=== PATIENT | male | born 1980 | race Caucasian/White ===

== ENCOUNTER 2017-03-05 11:27 | Inpatient (IN) | payer OTHER ==
[~2017-03-05] VITALS: Ht 180.3 cm; Wt 93.4 kg
--- NOTE | 2017-03-05 19:40 | NUR ---
Pre-Admission Pre-admission assessment performed in the intake department of [facility]. Pt is A&O x4 and ambulatory with a steady gait. He denies allergies to food or medications. Pt does not appear intoxicated and answers questions appropriately. Vital signs: B/P 141/83, HR 71, RR 18, O2 sat 97%, T 97.7, pain 0/10. He reports that he has been using Suboxone, xanax sporadically, soma sporadically, and marijuana. Last used Suboxone today, Xanax 1 week ago, and soma 1 week ago. Pt is stable and admission [facility].
[2017-03-05 19:45] VITALS: BP 141/83
[2017-03-05] MEDS ORDERED: ACETAMINOPHEN 325 MG TABLET PO PRN (20:00)
[2017-03-05] MEDS ORDERED: DICYCLOMINE HCL 20 MG TABLET PO PRN (20:00)
[2017-03-05] MEDS ORDERED: BUPRENORPHINE HCL 2 MG TAB.SUBL SL PRN (20:00)
[2017-03-05] MEDS ORDERED: MAG HYDROX/AL HYDROX/SIMETH 30 ML LIQUID UDC PO PRN (20:00)
[2017-03-05] MEDS ORDERED: DIAZEPAM 5 MG TABLET PO PRN (20:00)
[2017-03-05] MEDS ORDERED: LORAZEPAM 2 MG/1 ML VIAL IM PRN (20:00)
[2017-03-05] MEDS ORDERED: MIRALAX 17 GM POWD.PACK PO PRN (20:00)
[2017-03-05] MEDS ORDERED: LOPERAMIDE HCL 2 MG CAPSULE PO PRN ×2 (20:00)
[2017-03-05] MEDS ORDERED: DIAZEPAM 10 MG TABLET PO PRN ×2 (20:00)
[2017-03-05] MEDS ORDERED: ONDANSETRON ODT 4 MG TAB.RAPDIS SL PRN (20:00)
[2017-03-05] MEDS ORDERED: CLONIDINE HCL 0.1 MG TABLET PO PRN (20:00)
[2017-03-05] MEDS ORDERED: ONDANSETRON 4 MG/2 ML VIAL IM PRN (20:00)
[2017-03-05 20:30] LABS: *AMPHETAMINE, URINE NEGATIVE (NEGATIVE); *BARBITURATE, URINE NEGATIVE (NEGATIVE); *CANNABINOID, URINE POSITIVE (NEGATIVE); *COCCAINE, URINE NEGATIVE (NEGATIVE); *OPIATE, URINE NEGATIVE (NEGATIVE); *PHENCYCLIDINE SCREEN,URINE NEGATIVE (NEGATIVE)
[2017-03-05 21:16] LABS: BASOPHILS # (AUTO) 0.1 K/uL (0.0-8.0); BASOPHILS % (AUTO) 0.5 % (0.0-2.0); EOSINOPHILS # (AUTO) 0.2 K/uL (0.0-0.7); EOSINOPHILS % (AUTO) 1.5 % (0.0-7.0); HEMOGLOBIN 14.4 G/DL (14.0-18.0); LYMPHOCYTES # (AUTO) 3.1 K/UL (0.8-4.8); LYMPHOCYTES % (AUTO) 25.9 % (20.5-51.5); MEAN CORPUSCULAR HGB CONC 34 g/dL (32.0-37.0); MONOCYTES % (AUTO) 8.1 % (0.0-11.0); NEUTROPHILS # (AUTO) 7.7 K/UL (1.8-8.9); PLATELET COUNT (AUTO) 369 K/UL (150-450); RED BLOOD CELL COUNT(AUTO) 5.12 MIL/UL (4.7-6.1); WHITE BLOOD COUNT (AUTO) 12.1 K/UL (4.0-11.2)
[2017-03-05 21:27] LABS: ETHANOL < 3 MG/DL (0-0)
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
[2017-03-05 21:31] LABS: ALANINE AMINOTRANSFERASE 22 U/L (16-63); ALKALINE PHOSPHATASE 84 U/L (50-136); ASPARTATE AMINOTRANSFERASE 16 U/L (15-37); BILIRUBIN,TOTAL 0.3 mg/dL (0.2-1.0); CARBON DIOXIDE 33 mmol/L (21-32); CHLORIDE 103 mmol/L (98-107); GLUCOSE 112 mg/dL (74-106); MAGNESIUM 1.8 mg/dL (1.8-2.4); POTASSIUM 3.7 mmol/L (3.5-5.1); TOTAL PROTEIN, SERUM 8.3 g/dL (6.4-8.2); UREA NITROGEN, BLOOD 16 mg/dL (7-18)
[2017-03-05 21:40] VITALS: BP 143/78
[2017-03-05] MEDS: diphenhydrAMINE 50 MG CAPSULE PO PRN (21:45)
[2017-03-05] MEDS: GABAPENTIN 300 MG CAPSULE PO SCH (21:45)
--- NOTE | 2017-03-05 21:46 | NUR ---
PRN Valium and Benadryl Pt is anxious and restless with mild tremors, flushed face, and moist skin. He reports inability to sleep. COWS 3 and CIWA 9. PRN Valium and Benadryl administered.
--- NOTE | 2017-03-05 22:45 | NUR ---
PRN Valium and Benadryl reassessment Pt reports feeling less anxious and restless. He states that he feels like he is getting tired. COWS 1 and CIWA 3. Safety measures in place.
[2017-03-06] VITALS: BP 137/87
[2017-03-06] MEDS ORDERED: BUPR1FIL3 SL (03:49)
[2017-03-06 04:00] VITALS: BP 127/76
--- NOTE | 2017-03-06 04:00 | NUR ---
COWS and CIWA deferred COWS and CIWA ordered Q4HWA. Pt is lying in bed resting with eyes closed. Vital signs obtained. Safety measures in place.
--- NOTE | 2017-03-06 07:00 | NUR ---
start of shift note: received pt from dump motor operator nurse, pt is in stable condition at this time no s/s of pain or discomfort. pt is admitted to [facility] for opiate/benzo/etoh intermittently. pt's last cows is 1 and ciwa 3. will induct taper medications and monitor for A/r to medications.
--- NOTE | 2017-03-06 07:23 | NUR ---
END OF SHIFT Report provided to day shift nurse. Pt is lying in bed resting. He is a 36 yo male admitted to [facility] on 03/05 for suboxone dependence with a h/o using xanax, soma, ETOH, and marijuana. Subutex taper to start today based on COWS score with PRN Valium available. PRN Valium and Benadryl administered before bed. Last COWS 1 and CIWA 3. He drank 480mL and slept for 7 hours.
[2017-03-06] MEDS: GABAPENTIN 300 MG CAPSULE PO SCH ×2 (08:53→20:38)
[2017-03-06] MEDS: MULTIVITAMINS,THERAPEUTIC TABLET PO SCH (08:54)
[2017-03-06] MEDS: BUPRENORPHINE HCL 2 MG TAB.SUBL SL SCH ×4 (08:54→20:38)
[2017-03-06 09:00] VITALS: BP 141/86
[2017-03-06] MEDS ORDERED: TUBERCULIN,PURIF.PROT.DERIV. 5 TU/0.1 ML TEST ID ONE (09:00)
--- NOTE | 2017-03-06 09:12 | NUR ---
PRN ADMINISTRATION:PT'S CIWA 7, PRN 5 MG VALIUM ADMINISTERED, PT VERBALIZED ANXIETY AND RESTLESSNESS. WILL RE-ASSESS EFFECTIVENESS OF MEDICATION
--- NOTE | 2017-03-06 09:30 | NUR ---
PRN RE-ASSESSMENT: PT VERBALIZED MEDICATION IS EFFECTIVE, PT'S ANXIETY LEVEL HAS DECREASED
[2017-03-06 13:00] VITALS: BP 112/86
[2017-03-06] MEDS: DIAZEPAM 10 MG TABLET PO SCH ×2 (15:02→20:38)
[2017-03-06] MEDS: PAROXETINE HCL 20 MG TABLET PO SCH (16:11)
[2017-03-06 17:18] VITALS: BP 126/86
--- NOTE | 2017-03-06 19:09 | NUR ---
end of shift note: pt is in stable condition no s/s of pain or discomfort.pt is admitted to [facility] for opaite/benzo/etoh withdrawal/dependence. pt was placed on a valium taper and tolerated well no a/r noted. pt tolerated subutex taper well. pts last cows 5 and ciwa 5. will endorse pt to night nurse nurse.
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
[2017-03-06 20:00] VITALS: BP 155/97
[2017-03-06] MEDS: METHOCARBAMOL 750 MG TABLET PO PRN (20:39)
[2017-03-06] MEDS: MAGNESIUM HYDROXIDE 30 ML LIQUID UDC PO PRN (20:40)
--- NOTE | 2017-03-06 20:41 | NUR ---
PRN Robaxin, Bentyl, and Milk of Magnesia Pt reports low back ache 7/10, stomach cramps, and no BM since prior to admission. PRN Robaxin, Bentyl, and Milk of Magnesia administered. Fluids encouraged.
--- NOTE | 2017-03-06 21:41 | NUR ---
PRN Anupama Sanches, and Milk of Magnesia reassessment Pt reports low back pain and stomach cramps are relieved. He has not yet has a BM. Educated pt that Milk of Magnesia can take up to 6 hours to work.
[2017-03-07] VITALS: BP 133/77
[2017-03-07] MEDS: diphenhydrAMINE 50 MG CAPSULE PO PRN (00:20)
--- NOTE | 2017-03-07 00:21 | NUR ---
PRN Benadryl Pt c/o inability to sleep. PRN Benadryl administered.
[2017-03-07 04:00] VITALS: BP 131/84
--- NOTE | 2017-03-07 04:00 | NUR ---
0400 COWS and CIWA deferred COWS and CIWA ordered Q4HWA. Pt is lying in bed resting with eyes closed. Vital signs obtained. Respirations even and unlabored. Safety measures in place.
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
[2017-03-07 08:00] VITALS: BP 134/75
[2017-03-07 08:17] LABS: HEPATITIS B SURFACE AG Negative (Negative)
[2017-03-07] MEDS: DIAZEPAM 5 MG TABLET PO SCH ×4 (08:47→21:22)
[2017-03-07] MEDS: BUPRENORPHINE HCL 2 MG TAB.SUBL SL SCH ×3 (08:47→21:22)
[2017-03-07] MEDS: MULTIVITAMINS,THERAPEUTIC TABLET PO SCH (08:47)
[2017-03-07] MEDS: PAROXETINE HCL 20 MG TABLET PO SCH (08:47)
[2017-03-07] MEDS: GABAPENTIN 300 MG CAPSULE PO SCH ×3 (08:47→21:21)
[2017-03-07 12:00] VITALS: BP 142/84
[2017-03-07] MEDS ORDERED: METHYL SALICYLATE/MENTHOL CREAM 28 GM TUBE TOP PRN (13:45)
[2017-03-07 16:00] VITALS: BP 104/45
[2017-03-07] MEDS: BACLOFEN 10 MG TABLET PO SCH ×2 (16:16→21:21)
[2017-03-07] MEDS: METHOCARBAMOL 750 MG TABLET PO PRN (16:21)
--- NOTE | 2017-03-07 16:30 | NUR ---
PRN Medication Administration Pt is in room and c/o muscle tension and discomfort; PRN Robaxin 750mg given as ordered. Will reassess in 1H.
--- NOTE | 2017-03-07 17:30 | NUR ---
Reassessment Pt is in room resting in bed and watching T.V. and denies muscle discomfort; Robaxin is effective. Will cont. to monitor the pt.
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
[2017-03-07 20:00] VITALS: BP 134/66
[2017-03-07] MEDS: CLONIDINE HCL 0.1 MG TABLET PO SCH (21:20)
[2017-03-07] MEDS: MAGNESIUM HYDROXIDE 30 ML LIQUID UDC PO PRN (21:23)
--- NOTE | 2017-03-07 21:24 | NUR ---
PRN Milk of Magnesia Pt reports difficulty having a BM. Encouraged fluids. PRN Milk of Magnesia administered.
[2017-03-08] VITALS: BP 122/74
--- NOTE | 2017-03-08 | NUR ---
0000 COWS and CIWA deferred COWS and CIWA ordered Q4HWA. Pt is lying in bed resting with eyes closed. Vital signs obtained. Safety measures in place.
--- NOTE | 2017-03-08 04:00 | NUR ---
0400 Vitals refused/COWS and CIWA deferred Pt refused to be woken for 0400 Vitals. He is lying in bed resting with eyes closed. Respirations even and unlabored. COWS and CIWA ordered Q4HWA. Safety measures in place.
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
[2017-03-08 08:00] VITALS: BP 118/79
[2017-03-08] MEDS ORDERED: BUPRENORPHINE HCL 2 MG TAB.SUBL SL SCH (09:00)
[2017-03-08] MEDS: PAROXETINE HCL 20 MG TABLET PO SCH (09:21)
[2017-03-08] MEDS: MULTIVITAMINS,THERAPEUTIC TABLET PO SCH (09:22)
[2017-03-08] MEDS: IBUPROFEN 600 MG TABLET PO PRN (09:22)
[2017-03-08] MEDS: DIAZEPAM 5 MG TABLET PO SCH ×3 (09:22→21:42)
[2017-03-08] MEDS: BACLOFEN 10 MG TABLET PO SCH (09:22)
--- NOTE | 2017-03-08 09:22 | NUR ---
PRN MEDICATION ADMINISTRATION Low back pain 11/30. Gave Motrin PRN for pain.
[2017-03-08] MEDS: GABAPENTIN 300 MG CAPSULE PO SCH (09:23)
--- NOTE | 2017-03-08 10:22 | NUR ---
PRN MEDICATION REASSESSMENT Denies low back pain after Motrin PRN medication.
[2017-03-08] MEDS: CLONIDINE HCL 0.1 MG TABLET PO SCH ×3 (10:24→21:41)
[2017-03-08] MEDS: busPIRone 5 MG TABLET PO SCH ×3 (11:00→17:02)
[2017-03-08 12:00] VITALS: BP 147/61
[2017-03-08] MEDS ORDERED: BISACODYL 10 MG SUPP.RECT RC PRN (13:15)
[2017-03-08] MEDS ORDERED: BISACODYL 5 MG TABLET.DR PO PRN (13:15)
[2017-03-08] MEDS ORDERED: KETOROLAC TROMETHAMINE 30 MG INJ IM PRN (13:15)
[2017-03-08] MEDS: GABAPENTIN 400 MG CAPSULE PO SCH ×2 (14:53→21:41)
[2017-03-08] MEDS: BACLOFEN 20 MG TABLET PO SCH ×2 (14:53→21:42)
[2017-03-08] MEDS: DOCUSATE SODIUM 250 MG CAPSULE PO SCH (14:53)
[2017-03-08] MEDS: BUPRENORPHINE HCL 2 MG TAB.SUBL SL SCH ×2 (14:55→21:42)
[2017-03-08] MEDS: LIDOCAINE 5% PATCH TD SCH (14:58)
--- NOTE | 2017-03-08 15:21 | NUR ---
Therapist prompted client about group times. Client stated he would try to attend all groups today.
[2017-03-08 16:00] VITALS: BP 138/76
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
[2017-03-08 20:00] VITALS: BP 127/69
--- NOTE | 2017-03-08 21:00 | NUR ---
PRN Benadryl Pt c/o inability to sleep. PRN Benadryl administered. Safety measures in place : bed on lowest position with side rails x2 up for safety, call light within reach. Will continue to monitor closely and offer help.
[2017-03-08] MEDS: diphenhydrAMINE 50 MG CAPSULE PO PRN (21:41)
--- NOTE | 2017-03-08 22:00 | NUR ---
RE-ASSESSMENT Fabien Pt. is sleeping, RR=16, unlabored and even.Safety measures in place : bed on lowest position with side rails x2 up for safety, call light within reach. Will continue to monitor closely and offer help.
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
[2017-03-09 08:00] VITALS: BP 132/84
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
[2017-03-09] MEDS: LIDOCAINE 5% PATCH TD SCH (09:12)
[2017-03-09] MEDS: BACLOFEN 20 MG TABLET PO SCH ×3 (09:15→21:17)
[2017-03-09] MEDS: CLONIDINE HCL 0.1 MG TABLET PO SCH ×3 (09:15→21:18)
[2017-03-09] MEDS: MULTIVITAMINS,THERAPEUTIC TABLET PO SCH (09:15)
[2017-03-09] MEDS: GABAPENTIN 400 MG CAPSULE PO SCH (09:15)
[2017-03-09] MEDS: busPIRone 5 MG TABLET PO SCH (09:15)
[2017-03-09] MEDS: DIAZEPAM 5 MG TABLET PO SCH ×2 (09:16→21:17)
[2017-03-09] MEDS: DOCUSATE SODIUM 250 MG CAPSULE PO SCH (09:16)
[2017-03-09] MEDS: BUPRENORPHINE HCL 2 MG TAB.SUBL SL SCH ×3 (09:16→21:18)
[2017-03-09] MEDS: PAROXETINE HCL 20 MG TABLET PO SCH (09:16)
[2017-03-09 12:00] VITALS: BP 132/85
[2017-03-09] MEDS ORDERED: busPIRone 5 MG TABLET PO SCH (13:00)
[2017-03-09] MEDS: busPIRone 10 MG TABLET PO SCH ×2 (13:44→17:09)
[2017-03-09] MEDS ORDERED: PNEUMOCOCCAL 23-VAL P-SAC VAC 0.5 ML VIAL IM ONE (15:00)
[2017-03-09] MEDS: GABAPENTIN 300 MG CAPSULE PO SCH ×2 (15:02→21:18)
[2017-03-09 16:00] VITALS: BP 139/88
[2017-03-09] MEDS: METHOCARBAMOL 750 MG TABLET PO PRN (17:08)
[2017-03-09] MEDS: IBUPROFEN 600 MG TABLET PO PRN (17:09)
--- NOTE | 2017-03-09 17:09 | NUR ---
PRN MEDICATION ADMINISTRATION Pt complaint of low back pain, gave Motrin and Robaxin.
--- NOTE | 2017-03-09 18:09 | NUR ---
PRN MEDICATION REASSESSMENT Low back pain 0/10.
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
[2017-03-09 20:00] VITALS: BP 125/71
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
--- NOTE | 2017-03-10 07:35 | NUR ---
START OF SHIFT Pt is a 36 yr old male, AA&Ox4. Pt was admitted on 03/05/17 for Opiate/Benzo dependence and is on Subutex and Valium taper as ordered. Medication candy well. Received report from night guard nurse. Pt slept for 7 hours. last COWS score was 3 and CIWA was 3 at 1999. Pt is observed with increase anxiety this morning m/b difficulty staying still. Pt is c/o muscle aching /. facial grimacing is observed. Encouraged increase fluid intake. Will f/u with eMAR. Skin is intact, warm and dry to touch. No tremors seen or felt. Safety precautions observed. will continue to monitor.
[2017-03-10 08:00] VITALS: BP 135/70
[2017-03-10] MEDS: busPIRone 10 MG TABLET PO SCH ×3 (08:48→17:15)
[2017-03-10] MEDS: GABAPENTIN 300 MG CAPSULE PO SCH (08:48)
[2017-03-10] MEDS: DOCUSATE SODIUM 250 MG CAPSULE PO SCH (08:48)
[2017-03-10] MEDS: CLONIDINE HCL 0.1 MG TABLET PO SCH (08:48)
[2017-03-10] MEDS: PAROXETINE HCL 20 MG TABLET PO SCH (08:48)
[2017-03-10] MEDS: BACLOFEN 20 MG TABLET PO SCH ×3 (08:49→21:42)
[2017-03-10] MEDS: LIDOCAINE 5% PATCH TD SCH (08:49)
[2017-03-10] MEDS: MULTIVITAMINS,THERAPEUTIC TABLET PO SCH (08:49)
--- NOTE | 2017-03-10 08:53 | NUR ---
PRN GIVEN Pt is c/o generalized chronic pain 01/30. Facial grimacing is observed. Toradol 30ml IM PRN was given as ordered. Medication candy well. Encouraged increase fluid intake. Will continue to monitor.
[2017-03-10] MEDS ORDERED: BUPRENORPHINE HCL 2 MG TAB.SUBL SL SCH (09:00)
--- NOTE | 2017-03-10 09:53 | NUR ---
PRN RE-ASSESSMENT Toradol PRN was effective. Pt states pain level 3/10. No facial grimacing is observed. Will continue to monitor.
[2017-03-10] MEDS ORDERED: HYDROXYZINE PAMOATE 25 MG CAPSULE PO PRN (11:00)
[2017-03-10] MEDS ORDERED: CLON0.2T12 PO (11:13)
[2017-03-10] MEDS ORDERED: BACL20TA PO (11:13)
[2017-03-10] MEDS ORDERED: FAMO20TA8 PO (11:13)
[2017-03-10] MEDS ORDERED: BUSP10TA3 PO (11:13)
[2017-03-10] MEDS ORDERED: NAPR500T3 PO (11:13)
[2017-03-10] MEDS ORDERED: DIPH50CA37 PO (11:13)
[2017-03-10] MEDS ORDERED: PARO20TA7 PO (11:13)
[2017-03-10] MEDS ORDERED: LIDO30AD10 TD (11:13)
[2017-03-10] MEDS ORDERED: HYDR-3895 PO (11:13)
[2017-03-10] MEDS ORDERED: GABA-536 PO (11:13)
[2017-03-10 12:00] VITALS: BP 129/77
[2017-03-10] MEDS ORDERED: TRAZODONE 100 MG TABLET PO PRN (12:00)
[2017-03-10] MEDS ORDERED: NAPROXEN 500 MG TABLET PO ONE (13:00)
[2017-03-10] MEDS: FAMOTIDINE 20 MG TABLET PO SCH (13:07)
[2017-03-10] MEDS: GABAPENTIN 400 MG CAPSULE PO SCH ×2 (15:17→21:41)
[2017-03-10] MEDS: CLONIDINE HCL 0.2 MG TABLET PO SCH ×2 (15:18→21:41)
[2017-03-10 16:00] VITALS: BP 122/74
--- NOTE | 2017-03-10 19:15 | NUR ---
START OF SHIFT NOTE : Pt is a 36 yr old male, AA&Ox4. Pt was admitted on 03/05/17 for Opiate/Benzo dependence and has completed Subutex and Valium taper as ordered. Medication tolerated well. Pt has been cooperative with medication regimen and plan of care. Pt is to be discharged tomorrow on 03/11/17. Pt has been observed with anxiety but is able to cope with anxiety level. Last COWS score was 1, CIWA score was 1 at 1600. Encouraged increase fluid intake. Skin is intact, warm and dry to touch. No tremors seen or felt. Safety measures in place : bed on lowest position with side rails x2 up for safety, call light within reach. Will continue to monitor closely and offer help.
--- NOTE | 2017-03-10 19:21 | NUR ---
END OF SHIFT Pt is a 36 yr old male, AA&Ox4. Pt was admitted on 03/05/17 for Opiate/Benzo dependence and has completed Subutex and Valium taper as ordered. Medication candy well. Pt has been cooperative with medication regimen and plan of care. Pt is to be discharged tomorrow on 03/11/17. Pt has been observed with anxiety but is able to cope with anxiety level. Pt c/o left hip and knee pain. Toradol PRN was given in the morning. Medication was effective. Last COWS score was 1, CIWA score was 1 at 1600. Encouraged increase fluid intake. Skin is intact, warm and dry to touch. No tremors seen or felt. Safety precautions observed.
[2017-03-10 20:00] VITALS: BP 112/74
--- NOTE | 2017-03-10 21:00 | NUR ---
PRN Benadryl Pt c/o inability to sleep and mild muscle spasm. PRN Benadryl , Robaxin administered. Safety measures in place : bed on lowest position with side rails x2 up for safety, call light within reach. Will continue to monitor closely and offer help
[2017-03-10] MEDS: NAPROXEN 500 MG TABLET PO SCH (21:42)
[2017-03-10] MEDS: METHOCARBAMOL 750 MG TABLET PO PRN (21:42)
--- NOTE | 2017-03-10 22:00 | NUR ---
RE-ASSESSMENT Verónica Conn Pt. is sleeping, RR=16, unlabored and even. Safety measures in place : bed on lowest position with side rails x2 up for safety, call light within reach. Will continue to monitor closely and offer help.
--- NOTE | 2017-03-11 06:36 | NUR ---
END OF SHIFT NOTE : Pt is a 36 yr old male, AA&Ox4. Pt was admitted on 03/05/17 for Opiate/Benzo dependence and has completed Subutex and Valium taper as ordered. Medication tolerated well. Pt has been cooperative with medication regimen and plan of care. Pt is to be discharged tomorrow on 03/11/17. Pt has been observed with anxiety but is able to cope with anxiety level. Encouraged increase fluid intake. Skin is intact, warm and dry to touch. Pt remains compliant with the treatment plan. No PRNs were given during my shift. V/S remain WNL. RR=16, even and unlabored, lungs clear upon auscultation, abdomen soft and non- distended. Pt denies nausea, vomiting and diarrhea. LAST CIWA=1 ,COWS= 1 at 0400 , [id number] ml, voided x3 , slept 9 hours.Pt. will be D/C today in A.M. Safety measures in place : bed on lowest position with side rails x2 up for safety, call light within reach. Will continue to monitor closely and offer help.
--- NOTE | 2017-03-11 07:15 | NUR ---
Start of Shift Endorsement received from nightshift nurse. Pt is a 36 y/o male admitted for Suboxone, Xanax, win, soma and marijuana dependence. Pt has been placed on a 5 day Subutex and 5 day Valium taper. Pt has completed both tapers and has been scheduled for discharge today. PT is tolerating the detox AEB CIWA 1, COWS 1. Pt reports sleeping 9 hours, feels rested and ready for discharge. Pt received PRN Robaxin and Trazodone. All discharge documentation has been completed, pt has received discharge education. VS WNL. Full Code. PT is alert and oriented x4. Pt is in STABLE condition at this time. Remains compliant with medication and diet regimen. All needs have been met, All safety measures in place per hospital policy. Bed in lowest position, side rails up x2, call-light within reach. Will continue to monitor
[2017-03-11 08:00] VITALS: BP 116/80
[2017-03-11 08:32] VITALS: BP 118/80
[2017-03-11] MEDS: CLONIDINE HCL 0.2 MG TABLET PO SCH (08:32)
[2017-03-11] MEDS: DOCUSATE SODIUM 250 MG CAPSULE PO SCH (08:32)
[2017-03-11] MEDS: NAPROXEN 500 MG TABLET PO SCH (08:32)
[2017-03-11] MEDS: BACLOFEN 20 MG TABLET PO SCH (08:32)
[2017-03-11] MEDS: busPIRone 10 MG TABLET PO SCH (08:33)
[2017-03-11] MEDS: MULTIVITAMINS,THERAPEUTIC TABLET PO SCH (08:33)
[2017-03-11] MEDS: LIDOCAINE 5% PATCH TD SCH (08:33)
[2017-03-11] MEDS: GABAPENTIN 400 MG CAPSULE PO SCH (08:33)
[2017-03-11] MEDS: FAMOTIDINE 20 MG TABLET PO SCH (08:49)
--- NOTE | 2017-03-11 09:28 | NUR ---
Discharge note PT has been discharged from [facility] to [facility]. PT is in Stable condition, VS WNL. Denies suicidal and homicidal ideations at this time. . All documentation has been completed, paperwork signed and dated. Pt left with all of his belongings, medications and prescriptions. Pt has been discharged from [facility] on 03/11/17 at 0928. has been Notified.
== END 2017-03-11 09:46 | disposition other institution (70) | DRG 895 ==
LOC: EDSEX 18:58 → SRC 18:58
PROVIDERS: ADMIT Internal Medicine; ATTEND Internal Medicine
DX: F11.23 Opioid dependence with withdrawal (principal); E87.3 Alkalosis; I15.9 Secondary hypertension, unspecified; F32.9 Major depressive disorder, single episode, unspecified; F41.1 Generalized anxiety disorder; Z82.3 Family history of stroke; Z82.49 Family history of ischemic heart disease and other diseases of the circulatory system; E86.0 Dehydration; F43.10 Post-traumatic stress disorder, unspecified; X99.9XXS Assault by unspecified sharp object, sequela; K59.03 Drug induced constipation; F17.200 Nicotine dependence, unspecified, uncomplicated; D72.823 Leukemoid reaction; F13.230 Sedative, hypnotic or anxiolytic dependence with withdrawal, uncomplicated; F12.20 Cannabis dependence, uncomplicated; G89.29 Other chronic pain
CPT/HCPCS: 36415; 70030-TC; 80307; 80346; 80349; 83735; 85025; 86580; 86592; 86705; 86803; 87340; 87806; 90732; A4663; G0480; J1885; Q0163